=== PATIENT | male | born 1975 | race Caucasian/White ===

== ENCOUNTER 2019-04-25 09:48 | Emergency (ER) | payer OTHER ==
[~2019-04-25] VITALS: Ht 182.9 cm; Wt 101.6 kg
--- NOTE | ~2019-04-25 | HC ---
[facility] [place] [address] CONSULTATION Name: KATHLEEN HERNANDEZ Room #: DEP Lola#: [id number] Admission: 04/25/19 ������������������ Attend Phys: Discharge: 04/25/19 ������������������ Date of : 73 Report #: [id number] THIS REPORT FOR: //name// CC: [facility] physician/PCP Dev Hewitt CARDIOLOGY CONSULT HISTORY OF PRESENT ILLNESS: The patient is a 44-year-old male who comes to the Emergency Room after having an onset of rapid heartbeat. This was at work. 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 He also was working outside, although it is not terribly hot today. He has had some recurrence of this over the last 10 years. At times, it can happen on a monthly basis, generally breaks with vagal maneuvers, but today it lasted approximately 40 minutes until we got in and then seen by the Emergency Room physician and did break with Valsalva. His EKG shows an SVT with a rate of 206. He did break spontaneously and I do not see evidence of preexcitation. He has become lightheaded with this, but never syncopal. Some atypical chest discomfort associated with this. No documented coronary disease, although there is a family history. Only medications he takes are for reflux. PAST MEDICAL HISTORY: Positive for this SVT tachycardia, intermittent, and some reflux GERD. 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 He does have children. He is accompanied by his work partner here. He was a prior tobacco user until 15 years ago. No significant alcohol use. ALLERGIES: No known drug allergies. FAMILY HISTORY: His grandfather had premature coronary disease on his father's side. PHYSICAL EXAMINATION: GENERAL: He is pleasant, alert. VITAL SIGNS: Currently, pulse is 100, blood pressure is 108/70. HEENT: Eyes reveal xanthelasmas. Pharynx is clear. NECK: Shows preserved upstrokes without JVD or bruits. LUNGS: Clear. CARDIOVASCULAR: Regular rate and rhythm, S1, S2. ABDOMEN: Soft. No HSM or abdominal bruit. EXTREMITIES: Reveal no edema. Distal pulses were intact. NEUROLOGIC: Nonfocal. SKIN: Warm and dry without xanthoma or ulcer. MUSCULOSKELETAL: No gross joint deformity. ASSESSMENT: 1. Paroxysmal supraventricular tachycardia. [facility] [address] [place] [address] CONSULTATION Name: KATHLEEN HERNANDEZ Room #: DEP Lola#: [id number] Admission: 04/25/19 ������������������ Attend Phys: Discharge: 04/25/19 ������������������ Date of : 73 Report #: [id number] 2. Gastroesophageal reflux disease. 3. Chest pain. RECOMMENDATIONS AND PLAN: He is currently pain free. We are awaiting laboratory work and x-rays. This looks like a relatively straightforward PSVT issue. We did discuss Valsalva maneuvers. I would agree with discharging him from the Emergency Room at the laboratory work is normal on Toprol 25 and then would follow him up with a stress echo to confirm structure abnormality of the heart and looking for any ischemia and then would give strong consideration to SVT ablation. We will have him visit with the EP service once I confirm he does not have underlying ischemia and the heart is structurally normal. I discussed this plan with the patient and Dr. Cartagena from the Emergency Room. We should proceed along this unless we are surprised by some laboratory findings. He does not have a primary doctor. Thank you for asking me to assist in the care of this patient. ��������������������������������������������� ���������������������������������������� By: ��������������������������������������������� 1025 0203 Franklin Brantley MD, FACC /nt
[2019-04-25 10:19] LABS: ABSOLUTE NEUTROPHILS 2.5 thou/uL (1.4-8.2); BASOPHILS 0.7 % (0.0-2.0); EOSINOPHILS 3.4 % (0.0-3.0); HEMATOCRIT 46.9 % (42.0-52.0); HEMOGLOBIN 16.1 gm/dL (14.0-18.0); LYMPHOCYTES 46.8 % (24.0-44.0); MCH 29.4 pg (26.0-34.0); MCHC 34.3 g/dL (28.0-37.0); MCV 85.8 fL (80.0-100.0); MONOCYTES 3.7 % (1.0-8.0); PLATELET COUNT 166 thou/uL (150-400); POLYS 45.4 % (36.0-66.0); RBC 5.47 mil/uL (4.50-6.00); WBC 5.4 thou/uL (4.0-11.0)
[2019-04-25 10:33] LABS: ANION GAP 12 mmol/L (7-16); BUN 18 mg/dL (7-18); CALCIUM 9.3 mg/dL (8.5-10.1); CHLORIDE 105 mmol/L (98-107); CO2 23 mmol/L (21-32); GLUCOSE 120 mg/dL (74-106); POTASSIUM 3.7 mmol/L (3.5-5.1); SODIUM 140 mmol/L (136-145)
[2019-04-25 10:41] LABS: TROPONIN-I <0.06 ng/mL (<0.06)
[2019-04-25] MEDS ORDERED: TOPROL XL25 MG PO (11:04)
[2019-04-25 11:18] VITALS: BP 127/90
--- NOTE | 2019-04-25 12:56 | EKG ---
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: VALENTINO : 1975 Requested By: Dev Hewitt Order Number: [id number] MD: Hima Ambrocio Measurements Intervals [place] Rate: 206 P: 0 AL: QRS: 61 QRSD: 100 T: -83 QT: 251 QTc: 465 Interpretive Statements AV ninfa reentry tachycardia Probable LVH with secondary repol abnrm ST depression, probably rate related Baseline wander in lead(s) V2 No previous ECG available for comparison Electronically Signed On 04-25-2019 12:56:39 CDT by Hima Ambrocio [email or web address] ��������������������������������������������� <ELECTRONICALLY SIGNED> ���������������������������������������� By: Hima Ambrocio MD ��������������������������������������������� 04/25/19 1256 Hima Ambrocio MD /EPI
--- NOTE | 2019-04-26 07:51 | EKG ---
[place] [address] [facility] [employer] [place] [address] ELECTROCARDIOGRAM REPORT Name: MARYKATHLEEN Room #: DEP JAYANT Davila#: [id number] ������������������ Admission: 04/25/19 ������������������ Attend Phys: Discharge: 04/25/19 ������������������ Date of : 73 Report #: [id number] ����������������������������������������������������������������� [id number] THIS REPORT FOR: //name// 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: VALENTINO : 1975 Requested By: Dev Hewitt Order Number: [id number] MD: Mode Upton Measurements Intervals [place] Rate: 103 P: 50 NE: 147 QRS: 54 QRSD: 98 T: -26 QT: 327 QTc: 428 Interpretive Statements Sinus tachycardia Nonspecific inferior T wave abnormality Compared to ECG 04/25/2019 09:49:32 sinus tachycardia has replaced PSVT Electronically Signed On 04-26-2019 7:51:11 CDT by Mode Upton [email or web address] ��������������������������������������������� <ELECTRONICALLY SIGNED> ���������������������������������������� By: Mode Upton MD, [facility] ��������������������������������������������� 04/26/19 0751 0959 8 Mode Upton MD, FACC /EPI
== END 2019-04-25 11:22 | disposition home or self-care (01) ==
LOC: ER 09:48
PROVIDERS: Emergency Medicine
DX: I47.1 Supraventricular tachycardia (principal); F10.10 Alcohol abuse, uncomplicated